=== PATIENT | female | born 1960 | race Hispanic/Latino ===

== ENCOUNTER 2021-02-02 16:45 | Outpatient (CLI) | payer MEDICARE, BC ==
[2021-02-02 17:31] LABS: Mean Corpuscular HGB CONC 34.1 g/dL (32.0-36.0); Mean Corpuscular Hemoglobin 30.1 pg (27.0-33.0); Mean Corpuscular Volume 88.2 fl (81.6-98.3); Mean Platelet Volume 10.7 fl (7.4-10.4); Platelet Count 243 10x3/uL (150-450); RBC Distribution Width 12.9 % (11.5-14.5); Red Blood Cell (RBC) Count 4.32 10x6/uL (3.90-5.03); White Blood Cell (WBC) Count 10.5 10x3/uL (3.5-10.5)
[2021-02-02 17:41] LABS: BHCG - Serum Negative (NEGATIVE); Pregs Control Background? CLEAR/WHITE (CLR/WHITE); Pregs Control Bar Appear? YES (CONTROL BAR)
== END 2021-02-02 16:46 | disposition home or self-care (01) ==
LOC: CSHLAB 16:45
PROVIDERS: ATTEND Obstetrics & Gynecology
DX: Z01.812 Encounter for preprocedural laboratory examination (principal); N95.0 Postmenopausal bleeding
CPT/HCPCS: 84703; 85027; 86850; 86900; 86901

== ENCOUNTER 2024-09-18 08:14 | Day surgery (SDC) | payer OTHER, MEDICARE ==
[2024-09-18] MEDS ORDERED: Ketorolac Tromethamine 30 MG (1 mL) VIAL ONE (08:54)
[2024-09-18] MEDS ORDERED: Acetaminophen 500 MG TAB ONE (08:54)
[2024-09-18 08:55] LABS: #Basophils Less than 0.03 10x3/uL (0.0-0.2); #Eosinophils Less than 0.03 10x3/uL (0.0-0.5); #Monocytes 0.34 10x3/uL (0.0-1.1); #Neutrophils 1.81 10x3/uL (1.5-8.4); %Basophils 0.4 % (0.0-2.0); %Monocytes 12.6 % (0.0-10.0); %Neutrophils 67.3 % (40.0-75.0); Hemoglobin 8.3 g/dL (12.0-15.5); Mean Corpuscular HGB CONC 33.2 g/dL (32.0-36.0); Mean Corpuscular Hemoglobin 26.9 pg (27.0-33.0); Mean Corpuscular Volume 81.2 fL (81.6-98.3); Mean Platelet Volume 8.7 fL (7.4-10.4); Platelet Count 134 10x3/uL (150-450); Red Blood Cell (RBC) Count 3.08 10x6/uL (3.90-5.03); White Blood Cell (WBC) Count 2.69 10x3/uL (3.5-10.5)
[2024-09-18] MEDS ORDERED: Ondansetron PF 4 MG/2 ML Vial ONE (09:06)
[2024-09-18 09:08] LABS: Anion Gap 17 mmol/L (10-20); BUN (Urea Nitrogen) 7 mg/dL (9.8-20.1); Calc. Creatinine Clearance 3 mL/min (70-130); Calcium 8.4 mg/dL (7.8-10.44); Carbon Dioxide 19 mmol/L (23-31); Chloride 104 mmol/L (98-107); Estimated GFR 103; Glucose 91 mg/dL (80-115); Potassium 2.9 mmol/L (3.5-5.1); Sodium 137 mmol/L (136-145)
[2024-09-18] MEDS ORDERED: PROPOFOL 20 ML ONE (10:02)
[2024-09-18] MEDS ORDERED: Bupivacaine/Epinephrine 0.25% 30 ML VIAL ONE (10:36)
[2024-09-18] MEDS ORDERED: Lidocaine 2% PF 5 ML VIAL ONE (10:44)
[2024-09-18] MEDS ORDERED: CEFAZOLIN 2 GM VIAL ONE (10:53)
[2024-09-18] MEDS ORDERED: Lidocaine 2% MPF 10 ML AMP (For Epidural Use) ONE (11:01)
== END 2024-09-18 12:23 | disposition home or self-care (01) ==
LOC: CSHSDC 08:14
PROVIDERS: ATTEND Specialist
PROC: 0JH63WZ Insertion of Totally Implantable Vascular Access Device into Chest Subcutaneous Tissue and Fascia, Percutaneous Approach (ICD-10-PCS; principal; 2024-09-18)
DX: C54.1 Malignant neoplasm of endometrium (principal); E11.9 Type 2 diabetes mellitus without complications; D64.9 Anemia, unspecified; E78.5 Hyperlipidemia, unspecified; M06.9 Rheumatoid arthritis, unspecified; K21.9 Gastro-esophageal reflux disease without esophagitis; F32.A Depression, unspecified; F41.9 Anxiety disorder, unspecified; Z79.899 Other long term (current) drug therapy
CPT/HCPCS: 36415; 71045; 80048; 85025; C1788; J1642; J1885; J2405; J2704

== ENCOUNTER 2025-05-06 14:25 | Outpatient (CLI) | payer BC, MEDICARE ==
[2025-05-06 15:47] LABS: #Basophils Less than 0.03 10x3/uL (0.0-0.2); #Eosinophils 0.06 10x3/uL (0.0-0.5); #Monocytes 0.41 10x3/uL (0.0-1.1); #Neutrophils 2.60 10x3/uL (1.5-8.4); %Basophils 0.5 % (0.0-2.0); %Eosinophils 1.4 % (0.0-6.0); %Lymphocytes 25.5 % (18.0-47.0); %Monocytes 9.9 % (0.0-10.0); %Neutrophils 62.7 % (40.0-75.0); Hematocrit 31.5 % (34.9-44.5); Hemoglobin 11.1 g/dL (12.0-15.5); Mean Corpuscular Hemoglobin 33.1 pg (27.0-33.0); Mean Corpuscular Volume 94.0 fL (81.6-98.3); Platelet Count 127 10x3/uL (150-450); Red Blood Cell (RBC) Count 3.35 10x6/uL (3.90-5.03); White Blood Cell (WBC) Count 4.15 10x3/uL (3.5-10.5)
[2025-05-06 16:28] LABS: Anion Gap 11 mmol/L (10-20); BUN (Urea Nitrogen) 22 mg/dL (9.8-20.1); Calc. Creatinine Clearance 0 mL/min (70-130); Calcium 9.3 mg/dL (7.8-10.44); Carbon Dioxide 29 mmol/L (23-31); Chloride 101 mmol/L (98-107); Glucose 98 mg/dL (80-115); Potassium 3.9 mmol/L (3.5-5.1); Sodium 137 mmol/L (136-145)
== END 2025-05-06 14:26 | disposition home or self-care (01) ==
LOC: CSHLAB 14:25
PROVIDERS: ATTEND Specialist
DX: Z01.818 Encounter for other preprocedural examination (principal); Z15.01 Genetic susceptibility to malignant neoplasm of breast; C54.1 Malignant neoplasm of endometrium
CPT/HCPCS: 71046; 80048; 85025; 93005; 93010

== ENCOUNTER 2025-05-12 05:50 | Day surgery (SDC) | payer BC, MEDICARE ==
[2025-05-06 14:55] VITALS: BMI 25.0
[2025-05-12] MEDS ORDERED: SUGAMMADEX SODIUM 200 MG/2 ML VIAL ONE (06:54)
[2025-05-12] MEDS ORDERED: Rocuronium Bromide 10 MG/ML (10ML VIAL) ONE (06:54)
[2025-05-12] MEDS ORDERED: Ondansetron PF 4 MG/2 ML Vial ONE ×2 (06:54→11:32)
[2025-05-12] MEDS ORDERED: PROPOFOL 40 ML ONE (06:54)
[2025-05-12] MEDS ORDERED: Lidocaine 1% PF 5 ML VIAL ONE (06:54)
[2025-05-12] MEDS ORDERED: CEFAZOLIN 2 GM VIAL ONE (07:08)
[2025-05-12] MEDS ORDERED: Bupivacaine/Epinephrine 0.25% 30 ML VIAL ONE (07:09)
[2025-05-12] MEDS ORDERED: Phenylephrine 40 MG/NS 250 ML 250 ML ONE (07:18)
[2025-05-12] MEDS ORDERED: PHENYLEPHRINE-NS 100 MCG/ML 10 ML SYRINGE ONE (07:23)
[2025-05-12] MEDS ORDERED: Ketorolac Tromethamine 30 MG (1 mL) VIAL ONE (07:26)
[2025-05-12] MEDS ORDERED: Acetaminophen 500 MG TAB ONE (07:27)
[2025-05-12] MEDS ORDERED: HYDROcodone/Acetaminophen 5/325 mg Tablet ONE (12:52)
== END 2025-05-12 13:15 | disposition home or self-care (01) ==
LOC: CSHSDC 05:50
PROVIDERS: ATTEND Specialist
PROC: 0HTV0ZZ Resection of Bilateral Breast, Open Approach (ICD-10-PCS; principal; 2025-05-12)
PROC: 0HX5XZZ Transfer Chest Skin, External Approach (ICD-10-PCS; 2025-05-12)
DX: Z40.01 Encounter for prophylactic removal of breast (principal); C54.1 Malignant neoplasm of endometrium; D64.9 Anemia, unspecified; E78.5 Hyperlipidemia, unspecified; F41.9 Anxiety disorder, unspecified; F32.A Depression, unspecified; Z15.01 Genetic susceptibility to malignant neoplasm of breast; Z90.710 Acquired absence of both cervix and uterus; Z90.49 Acquired absence of other specified parts of digestive tract; Z79.899 Other long term (current) drug therapy
CPT/HCPCS: 19303; 14001; A6258; J1100; J1885; J2704 ×2; J3010; 88305